=== PATIENT | male | born 2005 | race Caucasian/White ===

== ENCOUNTER 2024-09-11 09:56 | Emergency (ER) | payer OTHER, SELFPAY ==
[2024-09-11 09:58] VITALS: BP 138/84
[2024-09-11 10:53] VITALS: BMI 20.9
--- NOTE | 2024-09-11 10:58 | ED.GENMED ---
History of Present Illness
General
Chief Complaint: Abdominal Symptoms
Time Seen by Provider: 09/11/24 10:43
History of Present Illness
History of Present Illness:
19-year-old male presents to the emergency department for evaluation of intractable vomiting for the past 24 hours. He has a generalized upper abdominal pain for the past 2 days, denies any diarrhea. Has a history of cyclic vomiting that was felt
to be cannabinoid induced, states that after his last hospital visit he had discontinued all cannabis use up until the past 2 days. Feels similar to prior bouts of hyperemesis. No prior abdominal surgeries.
Past History
Past History
ED Past Medical History: Psychiatric
Social History
Drug: Marijuana
Review of Systems
Review of Systems
Allergies reviewed?: Yes
All Other Systems: ROS reviewed and negative except as documented in HPI and ROS
Phy Exam
Physical Exam
Physical Exam:
GEN: Well appearing, NAD, WDWN
HEENT: Oral mucosa moist, no scleral icterus
Cardiac: Regular rate
Lung: No respiratory distress, no tachypnea
Abdomen: Soft, focal upper abdominal tenderness, no rigidity or peritoneal signs
MSK: No gross deformity or injuries
Skin: Good color, no pallor or jaundice, no rashes
Neuro: AO x3, moves all extremities freely
Psych: Calm, cooperative
Course
Orders/Labs/Results
Orders:
Orders
09/11/24 10:57
0.9% Sodium Chloride 1000 ml [Nss] 1,000 ml IV BOLUS
Diphenhydramine [Benadryl] 12.5 mg IV NOW STA
Haloperidol Lactate [Haldol] 2 mg IV NOW STA
09/11/24 11:08
Complete Blood Count/With Diff Urgent
Comprehensive Metabolic Panel Urgent
Lipase Urgent
09/11/24 11:13
Electrocardiogram (*1) Urgent
Reason for Study: QTc Monitoring
EKG- Treatment ONCE
Abnormal Lab Results
09/11/24
11:08
WBC 16.4 H 10^3/uL
(4.8-10.8)
Abs Immat Gran (auto) 0.1 H 10^3/uL
(0-0.05)
Absolute Neuts (auto) 14.2 H 10^3/uL
(1.4-6.5)
Neutrophils % 86.7 H %
(42.2-75.2)
Lymphocytes % 9.3 L %
(20.5-51.1)
BUN 21 H mg/dl
(9-20)
Glucose 174 H mg/dl
(70-99)
Calcium 10.4 H mg/dl
(8.4-10.2)
Total Bilirubin 4.1 H mg/dl
(0.2-1.3)
Total Protein 9.1 H g/dl
(6.3-8.2)
Albumin 5.9 H g/dl
(3.5-5.0)
09/11/24 11:08
09/11/24 11:08
Vital Signs
Initial and Last Documented VS:
Initial Vital Signs
Temp Pulse Resp BP Pulse Ox
97.5 F 90 18 138/84 99
09/11/24 09:58 09/11/24 09:58 09/11/24 09:58 09/11/24 09:58 09/11/24 09:58
Last Documented Vital Signs
Temp Pulse Resp BP Pulse Ox
97.5 F 78 16 109/57 99
09/11/24 09:58 09/11/24 12:00 09/11/24 12:00 09/11/24 12:00 09/11/24 12:00
MDM/Problems Addressed
MDM/Problems Addressed:
Patient tolerating p.o. fluids at time of discharge. Likely cannabinoid hyperemesis syndrome as the patient indicates improvement with hot showers. Encourage discontinuation of cannabinoids going forward, provided antiemetic and few tablets of
lorazepam for sleep purposes
*Critical Care Note
Total Time (30-74mins, 75-104mins- exclusive of procedures): Not Applicable
ED Attending Note
-
Portions of this chart may have been created with voice recognition software.� Occasional wrong word or��sound alike� substitutions may have occurred due to the inherent limitations of voice recognition software.
Discharge Plan
Departure
Patient Disposition: Home (Routine Discharge)
Date of Disposition: 09/11/24
Time of Disposition: 12:35
Patient with high blood pressure during this ER visit?: No
Discharge Problem:
Cannabinoid hyperemesis syndrome
Instructions: Cannabis hyperemesis syndrome
Prescriptions:
New
ondansetron 4 mg tablet,disintegrating
4 mg PO TIDPRN PRN (Reason: nausea/vomiting) Qty: 20 0RF
lorazepam 1 mg tablet
1 mg PO HS PRN (Reason: Sleep) Qty: 4 0RF
Referrals:
Roly Porter MD [Family Provider] -
Interventions
Interventions:
*Risk Screen - Suicide Last Done: 09/11/24 09:58
*General Assessment Last Done: 09/11/24 09:58
*Neglect/Abuse Screening Last Done: 09/11/24 09:58
*ED COVID-19 Vaccine History Last Done: 09/11/24 09:58
*Nursing Disposition Last Done: 09/11/24 12:42
TW-Sbtzoy-Gltbjzgbyn Assessment Last Done: 09/11/24 10:53
Discharge Date and Time
Discharge Date/Time: 09/11/24 12:51
Print Language: PAKIST[place]
[2024-09-11] MEDS: NSS 1000 IV (11:02)
[2024-09-11] MEDS: HALDOL 2 MG IV (11:10)
[2024-09-11] MEDS: BENADRYL 12.5 MG IV (11:10)
[2024-09-11 11:18] LABS: % Basophils 0.3 % (0-2); % Eosinophils 0.1 % (0-6); % Immature Granulocytes 0.5 % (0-0.5); % Lymphocytes 9.3 % (20.5-51.1); % Monocytes 3.1 % (1.7-9.3); % Neutrophils 86.7 % (42.2-75.2); Absolute Basophils 0.1 10^3/uL (0-0.2); Absolute Immature Granulocytes 0.1 10^3/uL (0-0.05); Absolute Lymphocytes 1.5 10^3/uL (1.2-3.4); Absolute Monocytes 0.5 10^3/uL (0.1-0.6); Absolute Neutrophils 14.2 10^3/uL (1.4-6.5); Hematocrit 44.6 % (39.0-52.0); Hemoglobin 15.5 g/dL (13.0-18.0); Mean Corp Hgb Conc. 34.8 g/dL (33.0-37.0); Mean Corpuscular Volume 89.2 fL (80.0-94.0); Mean Platelet Volume 10.3 fL (7.4-10.4); Nucleated Red Blood Cells % 0 % (-); Platelet Count 317 10^3/uL (130-400); Red Cell Dist. Width 12.1 % (11.5-14.5); White Blood Cell Count 16.4 10^3/uL (4.8-10.8)
[2024-09-11 11:27] VITALS: BP 141/76
[2024-09-11 11:32] LABS: ALT (SGPT) 40 U/L (0-50); AST (SGOT) 37 U/L (17-59); Albumin 5.9 g/dl (3.5-5.0); Alkaline Phosphatase 88 U/L (38-126); Blood Urea Nitrogen 21 mg/dl (9-20); Calcium 10.4 mg/dl (8.4-10.2); Carbon Dioxide 24 mmol/L (22-30); Chloride 100 mmol/L (98-107); Estimated Creatinine Clearance 122 ml/min; Glucose 174 mg/dl (70-99); Lipase 28 U/L (23-300); Potassium 3.9 mmol/L (3.5-5.1); Sodium 140 mmol/L (135-145); Total Bilirubin 4.1 mg/dl (0.2-1.3); Total Protein 9.1 g/dl (6.3-8.2); eGFR > 60.00
[2024-09-11 12:00] VITALS: BP 109/57
== END 2024-09-11 12:51 | disposition home or self-care (01) ==
LOC: EMR 09:56
PROVIDERS: Physician Assistant; EMERGENCY PHYSICIAN Emergency Medicine; FAMILY PHYSICIAN Family Medicine
DX: R11.10 Vomiting, unspecified (principal); F12.90 Cannabis use, unspecified, uncomplicated; R10.10 Upper abdominal pain, unspecified
CPT/HCPCS: 96374; 96375; 99284; 80053; 83690; 85025; 93005

== ENCOUNTER → 2025-04-03 10:20 | Outpatient (REF) | payer OTHER, SELFPAY | LOC: RAD 10:20 | PROVIDERS: ATTENDING PHYSICIAN Student in an Organized Health Care Education/Training Program | DX: R05.9 Cough, unspecified (principal) | CPT/HCPCS: 71046 ==

== ENCOUNTER → 2025-07-23 12:58 | Outpatient (REF) | payer OTHER, SELFPAY | LOC: RCS 12:58 | PROVIDERS: ATTENDING PHYSICIAN Internal Medicine Cardiovascular Disease; FAMILY PHYSICIAN Physician Assistant | DX: R94.31 Abnormal electrocardiogram [ECG] [EKG] (principal) | CPT/HCPCS: 93306 ==